=== PATIENT | female | born 1955 | race African-American/Black ===

== ENCOUNTER 2016-12-07 14:21 | Emergency (ER) | payer OTHER ==
[~2016-12-07 14:21] MED LIST: HYDROCHLOROTHIA25 MG PO; LISINOPRIL20 MG PO; LORTAB 5/500 TA1 TA1 PO; MOBIC PO; ZYRTEC10 M2 PO
== END 2016-12-07 15:30 | disposition home or self-care (01) ==
LOC: CED 14:21
DX: M54.2 Cervicalgia (principal)
CPT/HCPCS: 99282